=== PATIENT | male | born 1950 | race Caucasian/White ===

== ENCOUNTER → 2023-11-12 | Outpatient (CLI) | payer OTHER | END | disposition home or self-care (01) | LOC: RESCLI 10:46 | PROVIDERS: ATTEND Family Medicine | DX: I48.91 Unspecified atrial fibrillation (principal); I10 Essential (primary) hypertension; E78.5 Hyperlipidemia, unspecified; Z95.5 Presence of coronary angioplasty implant and graft; Z82.3 Family history of stroke; Z87.891 Personal history of nicotine dependence; F10.90 Alcohol use, unspecified, uncomplicated; Z79.01 Long term (current) use of anticoagulants; Z98.890 Other specified postprocedural states; Z95.828 Presence of other vascular implants and grafts; Z79.899 Other long term (current) drug therapy ==